=== PATIENT | male | born 1975 | race Caucasian/White ===

== ENCOUNTER 2018-07-06 08:16 | Outpatient (CLI) | payer BC ==
[~2018-07-06] VITALS: Ht 170.2 cm; Wt 90.3 kg
[2018-07-06] MEDS ORDERED: HYDR-34 PO (12:42)
== END 2018-07-06 08:38 | disposition home or self-care (01) ==
LOC: PREOP 08:16 → SDC 09:39
PROVIDERS: ATTEND Surgery
DX: Z01.818 Encounter for other preprocedural examination (principal)

== ENCOUNTER 2018-07-06 09:42 | Day surgery (SDC) | payer BC ==
[~2018-07-06] VITALS: Ht 170.2 cm; Wt 90.3 kg
[2018-07-06] MEDS ORDERED: SEVOFLURANE (ULTANE) 15 ML INHAL SOLN ONE ×3 (10:22→12:42)
[2018-07-06] MEDS ORDERED: proPOfol 200 MG/20 ML (DIPRIVAN) VIAL IV ONE (10:22)
[2018-07-06] MEDS ORDERED: fentaNYL INJECTION 100 MCG/2 ML AMP ONE (10:22)
[2018-07-06] MEDS ORDERED: LIDOCAINE PF 2% 2 ML (XYLOCAINE) VIAL ONE (10:22)
[2018-07-06] MEDS ORDERED: ONDANSETRON 4 MG/2 ML (SDV) Z0FRAN ONE (10:22)
[2018-07-06] MEDS ORDERED: ROCURONIUM 10 MG/ML 5 ML SYRINGE IV ONE ×2 (10:22→12:01)
[2018-07-06] MEDS ORDERED: DEXAMETHASONE 10 MG/ML (DECADRON) 1 ML VIAL ONE (10:22)
[2018-07-06] MEDS ORDERED: MIDAZOLAM 2 MG/2 ML (VERSED) VIAL ONE (10:22)
--- NOTE | 2018-07-06 10:28 | Conscious Sedation/ASA ---
Conscious Sedation Pre-Proced Time 10:00 ASA Score 2 For ASA 3 and 4: Consider anesthesia and medical clearance. Also, for patients with a history of failed moderate sedation consider anesthesia. Airway Lungs Heart ASA score ASA 1: a normal healthy patient ASA 2: a patient with a mild systemic disease (mid diabetes, controlled hypertension, obesity ASA 3: a patient with a severe systemic disease that limits activity (angina , COPD, prior Myocardial infarction) ASA 4: a patient with an incapacitating disease that is a constant threat to life (CHF, renal failure) ASA 5: a moribund patient not expected to survive 24 hrs. (ruptured aneurysm) ASA 6: a declared brain patient whose organs are being harvested. For emergent operations, add the letter E after the classification Mallampati Classification Grade 2 Sedation Plan Analgesia, Amnesia, Plan communicated to team members, Discussed options with patient/fam, Discussed risks with patient/fam The patient is an appropriate candidate to undergo the planned procedure, sedation, and anesthesia. The patient immediately re-assessed prior to indication. RICHARD GREENE MD Jul 06, 2018 10:28 am
[2018-07-06] MEDS ORDERED: ACETAMINOPHEN 325 MG TABLET PO PRN (10:30)
[2018-07-06] MEDS ORDERED: ONDANSETRON 4 MG/2 ML (SDV) Z0FRAN IVP PRN ×2 (10:30→13:15)
[2018-07-06] MEDS ORDERED: morphine INJ 10 MG/ML 1ML (SYR OR VIAL) IVP PRN (10:30)
[2018-07-06] MEDS ORDERED: HYDROcodone/APAP 7.5 MG/325 MG (LORTAB, LORCET PLUS) TABLET PO PRN (10:30)
--- NOTE | 2018-07-06 10:30 | Progress Note-Pre Operative ---
Pre-Operative Progress Note H&P Reviewed The H&P was reviewed, patient examined and no changes noted. Date Seen by Provider: Jul 06, 2018 Time Seen by Provider: 10:00 Date H&P Reviewed: Jul 06, 2018 Time H&P Reviewed: 10:00 Pre-Operative Diagnosis: symptomatic reducible bilateral inguinal hernia RICHARD GREENE MD Jul 06, 2018 10:30 am
[2018-07-06] MEDS ORDERED: ceFAZolin INJECTION 1,000 MG in NS (IVPB) 50 ML IV ONE (10:45)
[2018-07-06] MEDS ORDERED: ceFAZolin 1 GM/NS 50 ML IVPB IV ONE ×2 (10:45)
[2018-07-06] MEDS ORDERED: BUP/EPI 0.5% 1:200,000 (SENSORCAINE) 30 ML VIAL ONE (10:47)
[2018-07-06 10:56] LABS: BASOPHILS % (AUTO) 1 % (0-10); EOSINOPHILS # (AUTO) 0.1 10^3/uL (0.0-0.3); EOSINOPHILS % (AUTO) 1 % (0-10); HEMATOCRIT 47 % (40-54); HEMOGLOBIN 17.5 G/DL (13.3-17.7); LYMPHOCYTES # (AUTO) 1.8 X 10^3 (1.0-4.0); LYMPHOCYTES % (AUTO) 26 % (12-44); MEAN CORPUSCULAR HEMOGLOBIN 31 PG (25-34); MEAN CORPUSCULAR HGB CONC 37 G/DL (32-36); MEAN CORPUSCULAR VOLUME 84 FL (80-99); MEAN PLATELET VOLUME 9.2 FL (7.4-10.4); MONOCYTES # (AUTO) 0.6 X 10^3 (0.0-1.0); MONOCYTES % (AUTO) 9 % (0-12); NEUTROPHILS # (AUTO) 4.3 X 10^3 (1.8-7.8); NEUTROPHILS % (AUTO) 63 % (42-75); PLATELET COUNT 249 10^3/uL (130-400); RED BLOOD COUNT 5.63 10^6/uL (4.35-5.85); RED CELL DISTRIBUTION WIDTH 12.5 % (10.0-14.5); WHITE BLOOD COUNT 6.8 10^3/uL (4.3-11.0)
[2018-07-06] MEDS ORDERED: LACTATED RINGERS 1,000 ML IV PRN (11:29)
[2018-07-06] MEDS ORDERED: NEOSTIGMINE 1 MG/ML 5 ML SYRINGE ONE (12:22)
[2018-07-06] MEDS ORDERED: GLYCOPYRROLATE 0.2 MG/ML (ROBINUL) 2 ML VIAL ONE (12:22)
--- NOTE | 2018-07-06 12:40 | Progress Note-Post Operative ---
Post-Operative Progess Note Surgeon (s)/Curve Saw Operator (s) Surgeon RICHARD GREENE MD Curve Saw Operator: none Pre-Operative Diagnosis symptomatic reducible bilateral inguinal hernia Post-Operative Diagnosis symptomatic reducible bilateral direct inguinal hernia. Procedure & Operative Findings Date of Procedure 07/06/18 Procedure Performed/Findings laparoscopic bilateral inguinal hernia repair with mesh. Anesthesia Type GET Estimated Blood Loss Estimated blood loss (mL): minimal Specimens/Packing Specimens Removed none RICHARD GREENE MD Jul 06, 2018 12:40 pm
[2018-07-06] MEDS ORDERED: HYDR-34 PO (12:42)
--- NOTE | 2018-07-06 12:46 | Discharge Inst-Surgical ---
D/C Lap Instructions-RAMONA New, Converted, or Re-Newed RX: RX on Chart Follow Up Appt in 2 weeks Activity as tolerated No driving for 24 hours No driving while on pain medications Incentive Spirometry use every 2 hours while awake Regular Diet Symptoms to Report: Fever over 101 degree F, Nausea/Vomiting Infection Signs and Symptoms to report: Increased redness, Foul odor of wound, Increased drainage Bathing instructions: May shower Operative Area Clean/Dry; Keep incision clean/dry If any problems/questions: Contact your physician or go to Emergency Room RICHARD GREENE MD Jul 06, 2018 12:46 pm
[2018-07-06] MEDS ORDERED: morphine INJ 10 MG/ML 1ML (SYR OR VIAL) IVP ONE (13:15)
[2018-07-06] MEDS ORDERED: HYDROmorphone 2 MG/ML VIAL (DILAUDID) IV ONE (13:15)
[2018-07-06 13:50] VITALS: BP 148/97
[2018-07-06 14:20] VITALS: BP 124/81
[2018-07-06 14:50] VITALS: BP 136/84
[2018-07-06 15:10] VITALS: BP 136/84
--- NOTE | 2018-07-06 17:59 | OPERATIVE REPORT ---
DATE OF SERVICE: 07/06/2018 ATTENDING PRIMARY CARE PHYSICIAN: Pipo Diggs DO PREOPERATIVE DIAGNOSIS: Bilateral reducible symptomatic inguinal hernias. POSTOPERATIVE DIAGNOSIS: Bilateral symptomatic direct inguinal hernias. PROCEDURE: Laparoscopic bilateral inguinal hernia repair with mesh. SURGEON: Estelle Small MD ANESTHESIA: General endotracheal. ESTIMATED BLOOD LOSS: Minimal. FINDINGS: Bilateral direct inguinal hernias. DISPOSITION: The patient tolerated the procedure well. INDICATIONS: The patient is a 42-year-old male referred over to us for pain and swelling in the right inguinal region. He had reported these symptoms for the past year. He states over time the lesion has grown larger and become more painful. He also has had pain in the left inguinal region on an intermittent basis as well. 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 Upon examination in the office, he had bilateral inguinal hernias, which were reducible; however, tender to palpation. DESCRIPTION OF PROCEDURE: The patient was brought to the operating room, laid supine on the table. After adequate IV pain and sedating medications and general endotracheal intubation, the abdomen was prepped and draped in standard surgical fashion. A 0.5% Marcaine with epinephrine was then used to anesthetize the overlying skin in the infraumbilical rim and a crescent shaped skin incision was made using a 15 blade. A sharp towel clamp was used to retract the abdominal wall anteriorly and a Veress needle was inserted with a low opening pressure of 0 mmHg and the abdomen was then insufflated to 15 mmHg pressure. The Veress needle was removed and a 5 mm Xcel trocar was placed followed by a 5 mm 45-degree angle laparoscope visualizing the peritoneal cavity. A 4-quadrant abdominal exploration was performed. There was a bilateral direct inguinal hernias identified with nothing within the hernia sacs. What was visualized of the omentum, small bowel, colon appeared normal. Under direct visualization, we then proceeded to place bilateral 5 mm ports under direct visualization after the skin and peritoneal lining were anesthetized using 0.5% Marcaine with epinephrine and a transverse skin incision was made using a 15 blade. The patient was then placed in Trendelenburg position. We first proceeded with repair of the right inguinal hernia, which was larger in size. An opening was made in the peritoneal lining laterally towards the conjoint tendon. We then proceeded more medial towards Trell's ligament. We then proceeded with inferior dissection taking the entire hernia sac. The cord and its surrounding contents were identified and spared throughout the process. A Bard 3DMax polypropylene mesh was then placed into this region and tacked to Trell's ligament medially and to the inguinal ligament and conjoint tendon laterally. The mesentery was then placed back over the mesh and a few tacks were placed to hold it into place. Good hemostasis was observed. We then proceeded with repair of the left inguinal hernia in a similar fashion. The peritoneal lining was opened near the conjoined tendon and inguinal ligament laterally using a Sonicision. We then proceeded with medial dissection to Trell's ligament. We then proceeded with inferior dissection with the Sonicision as well as blunt dissection encompassing the hernia sac as well. The same mesh was then placed into the area of the defect and tacked to Trell's ligament medially and conjoint tendon and inguinal ligament laterally. The peritoneal lining was then placed over the mesh and a few tacks were placed to hold it in place with visualization of good hemostasis. The 10 mm port site fascia and peritoneum were then closed under direct visualization using a Vish-Jesus device and an 0 Vicryl suture. The abdomen was then desufflated and remaining ports were removed. All skin incisions were closed using 4-0 Monocryl running subcuticular sutures. Wounds were then cleaned and covered with Dermabond. The patient tolerated the procedure well. We will start IV and oral pain medication as well as a clear liquid diet. All instructions about avoidance of lifting and exertion were again explained to the patient and he should not do anything about any lifting or exertion above 15 pounds for the next two weeks and then in a gradual stepwise manner increase activity until 6 weeks from the surgery date. Job ID: [id number] DocumentID: [id number] Dictated Date: 07/06/2018 12:55:04 Recoating Machine Operator Date: 07/06/2018 17:58:08 Dictated By: MD STEFFANIE PARK
== END 2018-07-06 15:30 | disposition home or self-care (01) ==
LOC: SDC 09:42
PROVIDERS: ATTEND Surgery
DX: K40.20 Bilateral inguinal hernia, without obstruction or gangrene, not specified as recurrent (principal); Z11.2 Encounter for screening for other bacterial diseases; Z87.891 Personal history of nicotine dependence
CPT/HCPCS: 36415; 85025; 87081; 94664